=== PATIENT | female | born 1980 | race Caucasian/White ===

== ENCOUNTER → 2018-03-05 | Outpatient (CLI) | payer BC | LOC: FIMAGING 07:43 | PROVIDERS: ATTEND Obstetrics & Gynecology | DX: O09.512 Supervision of elderly primigravida, second trimester (principal); O09.812 Supervision of pregnancy resulting from assisted reproductive technology, second trimester; Z3A.21 21 weeks gestation of pregnancy ==

== ENCOUNTER → 2018-04-02 | Outpatient (CLI) | payer BC | LOC: FIMAGING 07:53 | PROVIDERS: ATTEND Obstetrics & Gynecology | DX: O09.512 Supervision of elderly primigravida, second trimester (principal); O09.812 Supervision of pregnancy resulting from assisted reproductive technology, second trimester; Z3A.25 25 weeks gestation of pregnancy ==

== ENCOUNTER 2018-05-30 17:11 | Observation (INO) | payer BC ==
[2018-05-30] MEDS: LR 1,000 ML IV SCH ×2 (19:22→22:03)
--- NOTE | 2018-05-30 20:02 | PDGENHP ---
History and Physical History and Physical: Care: [facility] HPI: Faiza Swann is a 37yo with IUP @ 32 weeks that presents to L&D with complaints of left sided flank pain. She states she is concerned that she has a kidney stone. She states the pain on arrival was 8-9/10. She states the pain is intermittent. She has a h/o kidney stones, but none in this . She denies any fever/chills. She denies any dysuria, urgency, frequency. She denies any contractions, LOF, VB. Reports +FM. EDC: 07/17/18 which is based on LMP: 10/16/17 which is known. EDC is based on IVF dating Her is complicated by: ALEX @ 30wks, AMA, IVF , FOB Vater syndrome (spina bifida), mild anemia, abnormal 1hr GTT- 3hr GTT normal. Review of Systems: Constitutional: Denies any fever, chills, or fatigue HEENT: denies any visual changes, difficulty swallowing, hearing loss Cardiovascular: Denies any chest pain, palpitations, leg swelling Respiratory: denies any cough, wheezing, or shortness of breathe GI: Denies any nausea, vomiting, diarrhea, constipation : denies any dysuria, urgency, frequency, vaginal bleeding Musculoskeletal: denies any muscle or bone pain Skin: denies any rashes Neuro: denies any headache, seizures, lightheadedness, dizziness, or loss of consciousness Psychiatric: denies any depression, anxiety, or SI/HI thoughts HISTORY: Previous OB history: G1 Past medical history: kidney stones Past surgical history: none Social: Denies any alcohol, tobacco, or drug use. to Omar. Works in [employer] at [employer] Family history: Not relevant Medications: PNV, TUMS (PRN) Allergies (list reaction): NKDA LABS: Rh: O+ ABS: Neg Rubella: Immune HbsAg: NR HIV: NR VDRL: NR 1hr: 149- 3hr GTT NL GC: Neg Chlamydia: Neg Pap: Normal GBS: unknown BMI: (prepreg) 23 PHYSICAL EXAM: Constitutional: WN, A&Ox3 HEENT: normocephalic atraumatic, supple Skin: Warm, dry, intact Heart: RRR, no murmur Chest: CTA-B Abdomen: Soft, nontender, gravid back: +CVA tenderness SVE: deferred Extremities: no edema, negative homans sign Neuro: grossly normal Psych: normal affect assessment: FHT baseline 130 +accels, no decels, moderate variability Contractions: toco none Assessment: * [id number] with IUP@32wks * likely kidney stone * cat 1 FHR tracing * no evidence of labor Plan: * admit to L&D * renal US * UA sent/cx pending, CBC pending * IV fluids * pain management * strain urine * NST BID * plan to d/c home tomorrow/stable * consulted with Dr Leatha Boswell- agrees with plan of care Today's visit was approximately 45 min, of which >50% of visit 30 min, was spent face to face with pt on direct counseling/coordination of care.
[2018-05-31] MEDS: LR 1,000 ML IV SCH (03:13)
--- NOTE | 2018-05-31 09:58 | SOAPPROG ---
SOAP Progress Note Assessment/Plan: Assessment: [id number] with IUP@32wks Suspected Renal calculi Cat 1 FHR tracing JOSELO 13.4cm Plan: d/c home at this time Rx oxycodone given for pain relief Will strain urine cont PO hydration f/u with CNM in office this week FKC and PTL Prec discussed 05/31/18 09:58 Subjective: Pt doing well, desires d/c home at this time. She reports pain 2/10, improved since last night. She denies any passing of stones. Denies any contractions, LOF , VB. She reports +FM. Objective: Laboratory Results 05/30/18 19:25 Physical Exam - Physical Exam General Appearance: WD/WN, alert, no apparent distress Abdomen: non-tender, soft Back: CVA tenderness (- denies any) Skin: normal color, warm/dry Neuro/Psych: alert, normal mood/affect, oriented x 3 ICD10 Worksheet Patient Problems: Problems Problem Status Onset Renal calculus Acute Supervision of normal in third trimester Acute - ICD10 Problem Qualifiers (1) Renal calculus (2) Supervision of normal in third trimester
[2018-05-31] MEDS ORDERED: ONDANSETRON DISINTEGRATING 4 MG TAB PO PRN (10:20)
== END 2018-05-31 10:42 | disposition home or self-care (01) ==
LOC: FLD 17:11
PROVIDERS: ADMIT Advanced Practice Midwife; ATTEND Advanced Practice Midwife
DX: O26.833 Pregnancy related renal disease, third trimester (principal); N23 Unspecified renal colic; O99.013 Anemia complicating pregnancy, third trimester; O09.523 Supervision of elderly multigravida, third trimester; O09.813 Supervision of pregnancy resulting from assisted reproductive technology, third trimester; D64.9 Anemia, unspecified; Z87.442 Personal history of urinary calculi; Z87.59 Personal history of other complications of pregnancy, childbirth and the puerperium; Z82.79 Family history of other congenital malformations, deformations and chromosomal abnormalities; Z3A.32 32 weeks gestation of pregnancy
CPT/HCPCS: 59025; 76770; G0378; J2270

== ENCOUNTER 2018-06-28 07:12 | Inpatient (IN) | payer BC ==
--- NOTE | 2018-06-28 08:29 | PDGENHP ---
History and Physical History and Physical: Care: [facility] HPI: Patient is a 37yo @ 37-2 weeks that presents to L&D with complaints of having bright red vaginal bleeding this morning. She states that the pain was preceded by abdominal pain/sharp. Denies any regular contractions, LOF. She reports +FM. She denies any recent intercourse. She did have cervical exam on . EDC: 07/17/18 which is based on ETD/IVF. Her is complicated by: IVF, AMA, ALEX @ 30wks(from [facility] [place]), FOB h/o VATER , abnormal 1hr gtt- 3hr NL, mild anemia, kidney stone, +GBS Review of Systems: Constitutional: Denies any fever, chills, or fatigue HEENT: denies any visual changes, difficulty swallowing, hearing loss Cardiovascular: Denies any chest pain, palpitations, leg swelling Respiratory: denies any cough, wheezing, or shortness of breathe GI: Denies any nausea, vomiting, diarrhea, constipation : denies any dysuria, urgency, frequency,reports sharp pain with vaginal bleeding- passing clot Musculoskeletal: denies any muscle or bone pain Skin: denies any rashes Neuro: denies any headache, seizures, lightheadedness, dizziness, or loss of consciousness Psychiatric: denies any depression, anxiety, or SI/HI thoughts HISTORY: Previous OB history: G1 Past medical history: anemia, kidney stones Past surgical history: none Social: Denies any alcohol, tobacco, or drug use. Family history: Not relevant Medications: PNV, probiotics Allergies (list reaction): NKDA LABS: Rh: O+ ABS: Neg Rubella: Immune HbsAg: NR HIV: NR VDRL: NR 1hr: 149, 3hr NL GC: Neg Chlamydia: Neg Pap: Normal GBS: negative BMI: (prepreg) 23 PHYSICAL EXAM: Constitutional: WN, A&Ox3 HEENT: normocephalic atraumatic, supple Skin: Warm, dry, intact Heart: RRR, no murmur Chest: CTA-B Abdomen: Soft, nontender, gravid SVE: deferred spec exam: +blood/mucous noted at os, ?fluid noted, no active bleeding noted Extremities: no edema, negative homans sign Neuro: grossly normal Psych: normal affect assessment: FHT baseline 130 +accels, no decels, moderate variability Contractions: toco q irregular Assessment: 1) [id number] with IUP@ 37-2wks 2) no evidence of labor 3) GBS + 4) Cat 1 FHR tracing 5) FfN + 6) +vaginal bleeding Plan: 1) admit to L&D 2) start IV abx 2/2 GBS+ 3) will start pitocin 4) discussed plan of care with Dr Pedro- tremaine and agrees Today's visit was approximately 90 min, of which >50% of visit 50 min, was spent face to face with pt on direct counseling/coordination of care.
[2018-06-28] MEDS ORDERED: TERBUTALINE SULFATE 1 MG/ML VIAL IV PRN (08:55)
[2018-06-28] MEDS ORDERED: PENICILLIN G POTASSIUM 5,000,000 UNIT in D5W 150 ML IV ONE (08:55)
[2018-06-28] MEDS ORDERED: LR 1,000 ML IV PRN (08:55)
[2018-06-28] MEDS ORDERED: OLIVE OIL 118 ML BTL MISC PRN (08:55)
[2018-06-28] MEDS ORDERED: EPSOM SALT 454 GM TP PRN (08:55)
[2018-06-28] MEDS ORDERED: IBUPROFEN 600 MG TAB PO PRN (08:55)
[2018-06-28] MEDS ORDERED: MISOPROSTOL 200 MCG TAB PO PRN (08:55)
[2018-06-28] MEDS ORDERED: LIDOCAINE 1% 300 MG/30 ML SDV SC PRN (08:55)
[2018-06-28] MEDS ORDERED: AMMONIA AROMATIC 1 EACH AMP IH PRN (08:55)
[2018-06-28] MEDS ORDERED: OXYTOCIN/RINGERS LACTATE 1,000 ML IV PRN (08:55)
[2018-06-28] MEDS ORDERED: LR 500 ML IV PRN (08:57)
[2018-06-28] MEDS ORDERED: OXYTOCIN/RINGERS LACTATE 500 ML IV SCH (09:00)
[2018-06-28 10:33] LABS: PLATELET COUNT 192 10^3/uL (150-400)
[2018-06-28] MEDS ORDERED: OLIVE OIL 118 ML BTL ONE (11:51)
[2018-06-28] MEDS ORDERED: AMMONIA AROMATIC 1 EACH AMP IH ONE (11:51)
[2018-06-28] MEDS ORDERED: LIDOCAINE 1% 300 MG/30 ML SDV ONE (11:51)
[2018-06-28] MEDS ORDERED: MISOPROSTOL 200 MCG TAB ONE (11:52)
--- NOTE | 2018-06-28 13:00 | SOAPPROG ---
SOAP Progress Note Assessment/Plan: Assessment: Patient is 37.5 weeks . Called in to help elicit contraction and help dilation. Treatment: Auricular: R [place] acupuncture (BFA) = cingular gyrate, point zero, cazares men, omega 2, thalamus. Acupuncture point protocol to manage and reduce pain. Endocrine = encourage hormonal cascade for delivery. Right side: Ling Gu Extra point to relax the back Da Sybil Extra point to relax the back LI 4 Balance LR, ST, KI to move qi and blood. ST 36 Improve energy, circulate the qi. GB 34 Dilate the cervix. Relax the tendons. Balance LR, HT, SI. GB 40 Relax the waist. Balance LR, HT, and SI. GB 41 Master point of the Pauline Ariana/Belt meridian. Relax the waist. Encourage dilation of cervix. BL 65 Dejah point of BL meridian. Reduce back pain. BL 67 Soheila well of BL meridian. Encourage labor. Left Side: HT 4, 7 Calm the cazares, reduce stress and anxiety. PC 6 Reduce nausea and reflux. NIC 7 Master of the Jerry meridian. Support the uterus. Encourage contractions. SP 4 Master of the [place]. Support the uterus. Encourage contractions. SP 6 Meeting of the three Yin (LR, KI, and SP). Encourage labor. SP 7 - 9 Drain damp, encourage labor and contractions. Balance NIC, BL, SP and ST. LR 3 Move the Qi and Blood. Reduce stress. Relax the scapula/shoulder and neck. Balance LR, GB, LI, and PC. LR 5 x 4 flores Relax the shoulder and neck. Encircles the genitals. Encourage labor. Balance LR, GB, LI, and PC. KI 3 Support the low back. Electric stimulation on the following points: Bilateral: BL 23 - 32 R LI 4 to L SP [address] 36 - GB 34 Acupuncture points chosen using the principles of Dr. Garcia's Balance Method. Plan: 06/28/18 12:51 Objective: Laboratory Results 06/28/18 10:10 ICD10 Worksheet Patient Problems: Problems Problem Status Onset Renal calculus Acute Supervision of normal in third trimester Acute
--- NOTE | 2018-06-28 13:03 | SOAPPROG ---
SOAP Progress Note Assessment/Plan: Assessment: Patient is 37.5 weeks . Called in to help elicit contraction and help dilation. Treatment: Auricular: R [place] acupuncture (BFA) = cingular gyrate, point zero, cazares men, omega 2, thalamus. Acupuncture point protocol to manage and reduce pain. Endocrine = encourage hormonal cascade for delivery. Right side: Ling Gu Extra point to relax the back. Da Sybil Extra point to relax the back. [place] Tali Relax/open the hips. SI 3 Master of the DU Ariana. Relax the spine. Improve ROM in flexion and extension. LI 4 Balance LR, ST, KI to move qi and blood. ST 36 Improve energy, circulate the qi. GB 34 Dilate the cervix. Relax the tendons. Balance LR, HT, SI. GB 40 Relax the waist. Balance LR, HT, and SI. GB 41 Master point of the Pauline Ariana/Belt meridian. Relax the waist. Encourage dilation of cervix. BL 65 Dejah point of BL meridian. Reduce back pain. BL 67 Soheila well of BL meridian. Encourage labor. Left Side: HT 4, 7 Calm the cazares, reduce stress and anxiety. PC 6 Reduce nausea and reflux. NIC 7 Master of the Jerry meridian. Support the uterus. Encourage contractions. SP 4 Master of the [place]. Support the uterus. Encourage contractions. SP 6 Meeting of the three Yin (LR, KI, and SP). Encourage labor. SP 7 - 9 Drain damp, encourage labor and contractions. Balance NIC, BL, SP and ST. LR 3 Move the Qi and Blood. Reduce stress. Relax the scapula/shoulder and neck. Balance LR, GB, LI, and PC. LR 5 x 4 flores Relax the shoulder and neck. Encircles the genitals. Encourage labor. Balance LR, GB, LI, and PC. KI 3 Support the low back. Electric stimulation on the following points: Bilateral: BL 23 - 32 R LI 4 to L SP [address] 36 - GB 34 Acupuncture points chosen using the principles of Dr. Garcia's Balance Method. Plan: 06/28/18 12:51 06/28/18 13:02 Objective: Laboratory Results 06/28/18 10:10 ICD10 Worksheet Patient Problems: Problems Problem Status Onset Renal calculus Acute Supervision of normal in third trimester Acute
--- NOTE | 2018-06-28 14:16 | SOAPPROG ---
SOAP Progress Note Assessment/Plan: Assessment: Patient is 37.5 weeks . Called in to help elicit contraction and help dilation. Treatment: Auricular: R [place] acupuncture (BFA) = cingular gyrate, point zero, cazares men, omega 2, thalamus. Acupuncture point protocol to manage and reduce pain. Endocrine = encourage hormonal cascade for delivery. Right side: Ling Gu Extra point to relax the back. Da Sybil Extra point to relax the back. [place] Tali Relax/open the hips. SI 3 Master of the DU Ariana. Relax the spine. Improve ROM in flexion and extension. LI 4 Balance LR, ST, KI to move qi and blood. ST 36 Improve energy, circulate the qi. GB 34 Dilate the cervix. Relax the tendons. Balance LR, HT, SI. GB 40 Relax the waist. Balance LR, HT, and SI. GB 41 Master point of the Pauline Ariana/Belt meridian. Relax the waist. Encourage dilation of cervix. BL 65 Dejah point of BL meridian. Reduce back pain. BL 67 Soheila well of BL meridian. Encourage labor. Left Side: HT 4, 7 Calm the cazares, reduce stress and anxiety. PC 6 Reduce nausea and reflux. NIC 7 Master of the Jerry meridian. Support the uterus. Encourage contractions. SP 4 Master of the [place]. Support the uterus. Encourage contractions. SP 6 Meeting of the three Yin (LR, KI, and SP). Encourage labor. SP 7 - 9 Drain damp, encourage labor and contractions. Balance NIC, BL, SP and ST. LR 3 Move the Qi and Blood. Reduce stress. Relax the scapula/shoulder and neck. Balance LR, GB, LI, and PC. LR 5 x 4 flores Relax the shoulder and neck. Encircles the genitals. Encourage labor. Balance LR, GB, LI, and PC. KI 3 Support the low back. Electric stimulation on the following points: Bilateral: BL 23 - 32 R LI 4 to L SP [address] 36 - GB 34 Acupuncture points chosen using the principles of Dr. Garcia's Balance Method. Plan: 06/28/18 12:51 06/28/18 13:02 06/28/18 14:13 Second treatment: Bilateral: KI 3 Balance the BL meridian, encourage labor, reduce back pain SP 6 SP 8 Xi-Cleft of SP meridian, Balance SP, ST, HT and NIC meridians. SP 9 Drain damp, reduce edema and swelling. GB [address] 36 Electric Stimulation: SP 6 - SP 10 ST 36 - GB 34 Objective: Laboratory Results 06/28/18 10:10 ICD10 Worksheet Patient Problems: Problems Problem Status Onset Renal calculus Acute Supervision of normal in third trimester Acute
[2018-06-28] MEDS: PENICILLIN G POTASSIUM 2,500,000 UNIT in D5W 150 ML IV SCH ×3 (14:18→23:28)
--- NOTE | 2018-06-28 14:46 | OBPROG ---
Labor Progress Note Assessment/Plan: Assessment: [id number] with IUP@ 37-2wks SROM @ 0600- bloody/clear GBS + No evidence of labor Cat 1 FHR tracing Plan: forebag broken will start pitocin in approx 2 hours if no spontaneous labor pain management PRN acupuncture PRN reassess 2-4hr/PRN 06/28/18 14:40 Subjective/Intrapartum Course: 06/28/18 14:41 Pt doing well, she states she is feeling more contractions. She declined any intervention until this time, she was using nipple stimulation (breast pump), acupuncture, and walking to help stimulation natural labor to start. At this time pt is agreeable to exam and AROM of forebag if present. she does not wish to start pitocin at this time. Objective: 06/28/18 10:10 Patient ABO/Rh O POSITIVE 06/28/18 10:10 - SVE Dilation (cm): 4 Effacement (%): 75 Station: -2 Membranes: AROM (of forebag) Amniotic Fluid Color: Clear - Contraction Pattern Assessment Current Contraction Pattern: Irregular - FHR Assessment Kelley FHR (bpm): 135 FHR Pattern Variability: Moderate FHR Category: 1 - Procedures Non-surgical Procedures: Amniotomy (of forebag) Oxytocin Orders Assessment - Pre-Induction/Augmentation Assessment Gestational Age: 37 week(s) and 3 day(s) ICD10 Worksheet Patient Problems: Problems Problem Status Onset PROM (premature rupture of membranes) Acute Renal calculus Acute Supervision of normal in third trimester Acute - ICD10 Problem Qualifiers (1) PROM (premature rupture of membranes)
--- NOTE | 2018-06-28 18:28 | OBPROG ---
Labor Progress Note Assessment/Plan: Assessment: [id number] with IUP@ 37-2wks SROM @ 0600- bloody/clear GBS + early/active labor Cat 1 FHR tracing Plan: cont expectant management LIBERTAD per pt request reassess 2hr/PRN anticipate 06/28/18 18:27 Subjective/Intrapartum Course: 06/28/18 14:41 Pt doing well, she states she is feeling more contractions. She declined any intervention until this time, she was using nipple stimulation (breast pump), acupuncture, and walking to help stimulation natural labor to start. At this time pt is agreeable to exam and AROM of forebag if present. she does not wish to start pitocin at this time. 06/28/18 18:27 Pt doing well, she is breathing through contractions. She is laboring in the tub currently, but requesting LIBERTAD at this time. Leasing Property Manager and FOB @ BS and supportive. Objective: 06/28/18 10:10 Patient ABO/Rh O POSITIVE 06/28/18 10:10 - SVE Dilation (cm): 6 Effacement (%): 90 Station: -1 Membranes: AROM (of forebag) Amniotic Fluid Color: Clear - Contraction Pattern Assessment Current Contraction Pattern: Irregular - Procedures Non-surgical Procedures: Amniotomy (of forebag) Oxytocin Orders Assessment - Pre-Induction/Augmentation Assessment Gestational Age: 37 week(s) and 3 day(s) ICD10 Worksheet Patient Problems: Problems Problem Status Onset PROM (premature rupture of membranes) Acute Renal calculus Acute Supervision of normal in third trimester Acute - ICD10 Problem Qualifiers (1) PROM (premature rupture of membranes)
[2018-06-28] MEDS ORDERED: PHENYLEPHRINE HCL 100 MCG/ML SYR ONE (18:34)
[2018-06-28] MEDS ORDERED: BUPIVACAINE 0.25% 10 ML SDV ONE (18:34)
[2018-06-28] MEDS ORDERED: fentaNYL 2MCG/ML/BUP 0.1% RTU 100 ML BAG EP ONE (18:34)
[2018-06-28] MEDS ORDERED: fentaNYL 100 MCG/2 ML INJ ONE (20:42)
[2018-06-28] MEDS ORDERED: SIMETHICONE 80 MG TAB CHEW PO PRN (21:27)
[2018-06-28] MEDS ORDERED: HYDROCORTISONE 0.5% CREAM TP PRN (21:27)
[2018-06-28] MEDS ORDERED: fentaNYL 100 MCG/2 ML INJ IVP PRN (21:28)
--- NOTE | 2018-06-28 21:32 | OBDEL ---
Info Type: Vaginal Presentation at Delivery: Vertex L&D Analgesia/Anesthesia Type: None GBS+: Yes Intrapartum Medications: Generic Name Dose Route Start Last Admin Trade Name Freq PRN Reason Stop Dose Admin Lactated Ringer's 1,000 mls @ 0 mls/hr 06/28/18 08:55 06/28/18 10:18 Lr IV 06/29/18 08:54 1,000 mls PRN PRN Administration SEE PROTOCOL CONDITIONS Protocol Per Protocol Penicillin G Potassium 2,500, 155 mls @ 155 mls/hr 06/28/18 12:56 06/28/18 18 :31 000 unit/ Dextrose IV 07/28/18 12:55 155 mls Q4H BERNARDO Administration Protocol Discontinued Medications Generic Name Dose Route Start Last Admin Trade Name Freq PRN Reason Stop Dose Admin Penicillin G Potassium 5,000, 160 mls @ 160 mls/hr 06/28/18 08:55 06/28/18 10 :17 000 unit/ Dextrose IV 06/28/18 09:54 160 mls ONCE ONE Administration Protocol Penicillin - Hospital Course Intrapartum: 06/28/18 14:41 Pt doing well, she states she is feeling more contractions. She declined any intervention until this time, she was using nipple stimulation (breast pump), acupuncture, and walking to help stimulation natural labor to start. At this time pt is agreeable to exam and AROM of forebag if present. she does not wish to start pitocin at this time. 06/28/18 18:27 Pt doing well, she is breathing through contractions. She is laboring in the tub currently, but requesting LIBERTAD at this time. Mud Analysis Supervisor and FOB @ BS and supportive. Indications for Delivery: Spontaneous Labor, SROM Vaginal Delivery - Delivery Provider Delivery Physician/CNM: Naina Meadows - Labor and Delivery Onset of Contractions Date: 06/28/18 Onset of Contractions Time: 15:30 Onset of Contractions Type: Spontaneous Rupture of Membranes Date: 06/28/18 Rupture of Membranes Time: 06:00 Rupture of Membranes Type: Spontaneous Amniotic Fluid Color: Clear Dilation Complete Date: 06/28/18 Dilation Complete Time: 18:40 Placenta Delivery Date: 06/28/18 Placenta Delivery Time: 20:35 Total Hours of Labor: 5 Non-surgical Procedures: Amniotomy (of forebag) Laceration: 2nd Degree, Other (Specify) (left sulcal) Repair: 3-0, Vicryl Vaginal Sponge Count Correct: Yes Vaginal Needle Count Correct: Yes Vaginal Sweep Performed: Yes EBL: 500 Delivery Events: Nuchal Cord (/body cord) Delivery Comment: delivered in GLADIS position, nuchal and body cord noted. Dad helped catch baby girl. baby to mothers chest. delayed cord clamping, until no longer pulsating. cord clamped x2 and cut by dad. placenta delivered without difficulty. laceration iwth moderate bleeding, IV fentanyl given for repair, as well as local. Repaired under usual fashion. hemostasis achieved. pt tolerated procedure well. baby and mom bonding. Campbell Data MEERA: 07/16/18 Gestational Age: 37 week(s) and 3 day(s) Kelley Delivery Date: 06/28/18 Delivery Time: 20:26 Sex of Infant: Female Score (1 Min): 9 Score (5 Min): 9 ICD10 Worksheet Patient Problems: Problems Problem Status Onset PROM (premature rupture of membranes) Acute Renal calculus Acute Supervision of normal in third trimester Acute - ICD10 Problem Qualifiers (1) PROM (premature rupture of membranes)
[2018-06-29] MEDS: ACETAMINOPHEN 325 MG TAB PO PRN ×2 (05:16→12:04)
[2018-06-29] MEDS: IBUPROFEN 600 MG TAB PO PRN ×3 (05:17→18:09)
--- NOTE | 2018-06-29 09:36 | OBPP ---
Progress Note Assessment/Plan: Assessment: Plan: 06/29/18 09:35 PPD #1 Establishing P: Continue pain medications and work with on positions for . Plan for discharge home tomorrow. Subjective/ Course: 06/29/18 09:34 Doing well. Very happy with . Nipples are sore but has had position help which has improved the discomfort. Bleeding minimal. Pain well controlled with medication Objective: 06/29/18 05:25 Patient ABO/Rh O POSITIVE 06/28/18 10:10 Temp Pulse Resp BP Pulse Ox 37.2 C 87 16 112/73 94 06/29/18 01:15 06/29/18 01:15 06/29/18 01:15 06/29/18 01:15 06/29/18 01:15 Breasts soft, nipples intact bilaterally Perineum, well approximated, mild edema Minimal bleeding Uterine Position/Fundal Height: Umbilicus -1 Uterine Tone: Firm
[2018-06-29] MEDS: DOCUSATE SODIUM 100 MG CAP PO PRN (12:04)
[2018-06-30] MEDS: DOCUSATE SODIUM 100 MG CAP PO PRN ×2 (01:12→08:20)
[2018-06-30] MEDS: IBUPROFEN 600 MG TAB PO PRN ×2 (01:12→08:20)
[2018-06-30 09:28] VITALS: BP 117/73
[2018-06-30] MEDS ORDERED: FERROUS SULFATE 325 MG TAB PO SCH (09:45)
--- NOTE | 2018-06-30 10:23 | OBGCSDC ---
General Delivery Information - General Info : 1 Para: 1 Abortions: 0 Type: Vaginal L&D Analgesia/Anesthesia Type: IV Narcotics, Local Admission Date: 06/28/18 Labs: Patient ABO/Rh O POSITIVE 06/28/18 10:10 Hct 30.0 % (38.0-47.0) L 06/29/18 05:25 - Hospital Course Intrapartum: 06/28/18 14:41 Pt doing well, she states she is feeling more contractions. She declined any intervention until this time, she was using nipple stimulation (breast pump), acupuncture, and walking to help stimulation natural labor to start. At this time pt is agreeable to exam and AROM of forebag if present. she does not wish to start pitocin at this time. 06/28/18 18:27 Pt doing well, she is breathing through contractions. She is laboring in the tub currently, but requesting LIBERTAD at this time. Ditching Machine Engineer and FOB @ BS and supportive. : 06/29/18 09:34 Doing well. Very happy with . Nipples are sore but has had position help which has improved the discomfort. Bleeding minimal. Pain well controlled with medication year. 06/30/18 10:55 S) Pt doing well, reports min pain and bleeding. she is ambulating and voiding without difficulty. She is . She desires discharge home today. O) VSS, afebrile constitutional: WNWF, A&Ox3 HEENT: normocephalic, atraumatic, supple Heart: RRR, No murmur Chest: CTA-B Abdomen: Soft, nontender Uterus: Firm at U-2 Lochia: Minimal rubra Perineum: Intact, healing well Extremities: Trace edema, and negative Venice's sign Neuro: Grossly normal A) 37 year-old P1 S/P PPD#2 anemia P) Discharge home today Continue iron bid Pelvic rest x6wks Discussed danger signs (infection, preeclampsia, depression, heavy bleeding, etc) RTO in 2/4/6 weeks Vaginal - Delivery Provider Delivery Physician/CNM: Naina Meadows - Diagnosis Labor: Spontaneous Rupture of Membranes Type: Spontaneous Amniotic Fluid Color: Clear Laceration: 2nd Degree, Other (Specify) (left sulcal) Repair: 3-0, Vicryl Delivery Events: Nuchal Cord (/body cord) - Procedures Non-surgical Procedures: Amniotomy (of forebag) - Delivery Non-surgical Procedures: Amniotomy (of forebag) EBL: 500 Data MEERA: 07/16/18 Gestational Age: 37 week(s) and 5 day(s) Kelley Delivery Date: 06/28/18 Delivery Time: 20:26 Sex of : Female [place] Weight (gm): 2984 g Score (1 Min): 9 Score (5 Min): 9 Discharge Information - Discharge Information Prescriptions: Ibuprofen [Motrin (*)] 600 mg PO Q6HRS PRN #30 tab PRN Reason: Pain, Mild Able To Take Po Docusate Sodium [Colace 100 MG (*)] 100 mg PO BID PRN #30 cap PRN Reason: Constipation Condition: Good
== END 2018-06-30 13:50 | disposition home or self-care (01) | DRG 807 ==
LOC: FLD 07:12 → OBSVTOIN 08:57 → FOB 22:53
PROVIDERS: ADMIT Advanced Practice Midwife; ATTEND Advanced Practice Midwife
DX: O46.93 Antepartum hemorrhage, unspecified, third trimester (principal); Z37.0 Single live birth; Z3A.37 37 weeks gestation of pregnancy; O99.824 Streptococcus B carrier state complicating childbirth; O70.1 Second degree perineal laceration during delivery
CPT/HCPCS: J2370; J2540; J2590; J3010

== ENCOUNTER 2018-10-24 13:02 | Emergency (ER) | payer BC ==
[2018-10-24 13:16] VITALS: BP 110/71
--- NOTE | 2018-10-24 13:42 | EDPHY ---
H & P Time Seen by Provider: 10/24/18 13:12 HPI/ROS: CHIEF COMPLAINT: Eyelid swelling History by patient HISTORY OF PRESENT ILLNESS: 38-year-old woman presents with left upper eyelid swelling and redness. She was initially seen by her PCP and prescribed warm compresses. She had minimal improvement so than she was seen an outpatient clinic and put on Keflex 2 days ago for the same thing but has had no improvement. She has not vigorously continued the compresses. She has had no drainage from the eye. She denies any difficulty with her vision. REVIEW OF SYSTEMS: As in HPI, and all other systems reviewed and are negative Smoking Status: Never smoked Physical Exam: General: Alert, well-appearing Head: Normocephalic, atraumatic EOMI Pupils: Equal round reactive to light Lids: Left eyelid positive swollen mobile being gland which is tender and red, no drainage, there is minimal surrounding erythema, extraocular movements are intact without pain. Right eye is unaffected. Conjunctiva: Clear Scleral: Clear Constitutional: Initial Vital Signs Temperature (C) 37.1 C 10/24/18 13:14 Heart Rate 65 10/24/18 13:14 Respiratory Rate 16 10/24/18 13:14 Blood Pressure 110/71 10/24/18 13:14 O2 Sat (%) 95 10/24/18 13:14 O2 Delivery Mode Room Air Allergies/Adverse Reactions: No Known Allergies Allergy (Verified 10/24/18 13:13) Home Medications: Medication Instructions Recorded Vit27&Calcium/Iron/FA 1 each PO DAILY 06/29/18 [] Amoxicillin/Clavulanate Pot 875 mg PO BID #10 tab 10/24/18 [Augmentin 875 MG TAB (*)] Keflex 500 TID 10/24/18 MDM/Departure - [facility] ED Course/Re-evaluation: [age] year old woman presents with persistent stye of left eye. There is no evidence of surrounding infection or orbital involvement. There is no visual impairment. Because this is the patient's 3rd visit I did discuss that with precision agriculture specialist physician for Ophthalmology, Dr. Restrepo, who recommended switching the patient from Keflex to Augmentin and who agreed to see the patient in follow -up in his office next week. - Depart Disposition: Home, Routine, Self-Care Clinical Impression: Hordeolum Qualifiers: Hordeolum type: internum Laterality: left Eyelid: upper Qualified Code(s): H00.024 - Hordeolum internum left upper eyelid Condition: Good Instructions: Amoxicillin/Clavulanate Potassium (By mouth), Laura (ED) Additional Instructions: You were seen by Dr. Nadira Narayan today. You have an inflamed meibomian gland. Please apply warm compresses for 5-10 minutes at least 5 times daily and massage the area. We will change your antibiotics to Augmentin. I recommend taking probiotics in between doses of antibiotics. Please follow-up with , Ophthalmology, early next week. Return for any worsening or new concerns. Prescriptions: Amoxicillin/Clavulanate Pot [Augmentin 875 MG TAB (*)] 875 mg PO BID #10 tab Referrals: Cabrera Restrepo [Medical Doctor] - As per Instructions NONE *PRIMARY CARE P,. [Primary Care Provider] - As per Instructions
== END 2018-10-24 13:53 | disposition home or self-care (01) ==
LOC: CED 13:02
DX: H00.024 Hordeolum internum left upper eyelid (principal)
CPT/HCPCS: 99283-ER